=== PATIENT | male | born 1955 | race Caucasian/White ===

== ENCOUNTER 2018-04-11 11:14 | Day surgery (SDC) | payer BC, OTHER ==
[2018-04-11] MEDS ORDERED: PROPOFOL 200 MG/20 ML VIAL As Ordered ×2 (11:31→12:30)
[2018-04-11] MEDS ORDERED: LIDOCAINE 2% INJ 100 MG/5 ML SDV (FOR ANES.) As Ordered (11:31)
[2018-04-11] MEDS: NS 1,000 ML IV (11:42)
[2018-04-11] MEDS ORDERED: METOPROLOL 5 MG/5 ML VIAL As Ordered (12:04)
== END 2018-04-11 13:09 | disposition home or self-care (01) ==
LOC: M OPP 11:14
DX: Z12.11 Encounter for screening for malignant neoplasm of colon (principal); D12.2 Benign neoplasm of ascending colon; D12.3 Benign neoplasm of transverse colon; D12.4 Benign neoplasm of descending colon; D12.7 Benign neoplasm of rectosigmoid junction; K57.30 Diverticulosis of large intestine without perforation or abscess without bleeding; I25.10 Atherosclerotic heart disease of native coronary artery without angina pectoris; I10 Essential (primary) hypertension; E11.9 Type 2 diabetes mellitus without complications; E78.00 Pure hypercholesterolemia, unspecified; I25.2 Old myocardial infarction; E66.9 Obesity, unspecified; F17.290 Nicotine dependence, other tobacco product, uncomplicated; Z79.890 Hormone replacement therapy; Z79.01 Long term (current) use of anticoagulants; Z79.82 Long term (current) use of aspirin; Z79.84 Long term (current) use of oral hypoglycemic drugs; Z95.5 Presence of coronary angioplasty implant and graft
CPT/HCPCS: 45385

== ENCOUNTER 2018-09-25 17:25 | Emergency (ER) | payer BC, OTHER ==
[~2018-09-25] VITALS: Ht 170.2 cm; Wt 99.1 kg
[~2018-09-25 17:25] MED LIST: ASPI-255 PO; ATOR80TA59 PO; CLOP75TA2 PO; FISH7.5C PO; LEVO175T2 PO; METF-839 PO; METO50TA7 PO; MULTCAP PO; NIAC500T64 PO; RAMI1CAP22 PO
[2018-09-25] MEDS ORDERED: NS 1,000 ML IV ONE ×2 (19:45→21:30)
[2018-09-25 19:54] LABS: ALBUMIN 4.3 GM/DL (3.2-5.2); ALT/SGPT 30 U/L (12-78); AMYLASE 39 U/L (25-115); BILIRUBIN,DIRECT < 0.1 MG/DL (0.0-0.2); BILIRUBIN,TOTAL 0.5 MG/DL (0.2-1.0); LIPASE 153 U/L (73-393); TOTAL PROTEIN 7.3 GM/DL (6.4-8.2)
[2018-09-25 19:59] LABS: BASO % 0.1 % (0.0-1.0); EOS % 0.3 % (0.0-3.0); HEMATOCRIT 46.8 % (42.0-52.0); LYMPH # 1.5 10^3/uL (1.5-4.5); LYMPH % 9.6 % (24.0-44.0); MEAN CORPUSCULAR HGB CONC 34.2 g/dl (32.0-36.5); MEAN CORPUSCULAR VOLUME 93.6 fl (80.0-96.0); MONO # 0.7 10^3/uL (0.0-0.8); MONO % 4.2 % (0.0-5.0); NEUTROPHILS # 13.4 10^3/uL (1.8-7.7); NEUTROPHILS % 85.5 % (36.0-66.0); PLATELET COUNT, AUTOMATED 255 10^3/uL (150-450); WHITE BLOOD COUNT 15.6 10^3/uL (4.0-10.0)
[2018-09-25] MEDS ORDERED: KETOROLAC 30 MG/ML VIAL (J1885) IV ONE (20:00)
[2018-09-25 21:48] LABS: CPK CREATINE PHOSPHOKINASE 66 U/L (39-308)
[2018-09-25] MEDS: GASTROGRAFIN SOLUTION 30ML PO SCH ×2 (22:01→22:39)
[2018-09-25] MEDS ORDERED: ISOVUE-370 76% 100ML VIAL (Q9967) As Ordered ONE (23:21)
[2018-09-25] MEDS ORDERED: ACETAMINOPHEN 500 MG TAB PO ONE (23:30)
--- NOTE | 2018-09-26 00:17 | REPVR ---
EXAM: CT Abdomen and Pelvis With Contrast EXAM DATE/TIME: 09/25/2018 9:11 PM CLINICAL HISTORY: 63 years old, male; Right flank pain and hematuria. TECHNIQUE: Imaging protocol: Axial computed tomography images of the abdomen and pelvis with intravenous contrast. Coronal and sagittal reformatted images were created and reviewed. Radiation optimization: All CT scans at this facility use at least one of these dose optimization techniques: automated exposure control; mA and/or kV adjustment per patient size (includes targeted exams where dose is matched to clinical indication); or iterative reconstruction. Contrast material: ISO; Contrast volume: 100 ml; Contrast route: AC; COMPARISON: No relevant prior studies available. FINDINGS: Lungs: The imaged lung bases are clear. Heart: No cardiomegaly or pericardial effusion is noted. ABDOMEN: Liver: The attenuation of the liver is lower compared to the spleen, which can be seen with fatty liver infiltration. No liver lesion is seen. The contour of the liver is smooth. No hepatomegaly is noted. Gallbladder and bile ducts: No calcified gallstones are seen. No gallbladder wall thickening, pericholecystic fluid, or pericholecystic inflammatory changes are identified. No dilation of the intrahepatic or extrahepatic bile ducts is noted. Pancreas: Normal. No dilation of the main pancreatic duct is noted. Spleen: Normal. No splenomegaly is noted. Incidental note is made of a small accessory spleen. Adrenals: There is a 13 mm left adrenal nodule with smooth margins, which measures approximately 40 Hounsfield units. The right adrenal gland is normal. Kidneys and ureters: There is a 5 mm calculus in the right proximal ureter at the L3 level and mild right hydroureteronephrosis. There are calculi in the renal collecting systems bilaterally. No stones are noted in the left. There is bilateral perinephric stranding and right proximal ureteral stranding. There is a 4 mm low-attenuation lesion in the anterior cortex of the midpole of the right kidney, which is too small to accurately characterize. There are several cysts in the left kidney measuring 13 and 15 mm in the midpole, and 22 mm in the inferior pole. There is also a 27 mm low-attenuation lesion measuring 34 Hounsfield units in the lateral cortex of the left kidney, which is not fully characterized in this study. Stomach and bowel: There is no evidence for a bowel obstruction, diverticulosis, diverticulitis, colitis, pneumatosis intestinalis, intussusception, volvulus, or perforated viscus. Appendix: Normal. There is no evidence for appendicitis. PELVIS: Bladder: There is circumferential thickening of the wall of the partially distended urinary bladder. No stones are noted in the urinary bladder. Reproductive: The prostate gland is enlarged. The seminal vesicles are unremarkable. ABDOMEN and PELVIS: Intraperitoneal space: Normal. No free air. No fluid collection. Bones/joints: The imaged bony structures are intact. There is no suspicious osteolytic or osteoblastic lesion. There are degenerative changes in the lumbar spine. Incidental note is made of small bone islands in the T8 and T12 vertebral bodies. There is mild osteoarthritis of both hip joints. Soft tissues: There is a moderate fat containing umbilical hernia. Vasculature: The abdominal aorta is normal in caliber. There are mild to moderate atherosclerotic calcifications. There is an 11 mm oval calcification of the right side of the pelvis, which represents a phlebolith. Lymph nodes: No enlarged lymph nodes. IMPRESSION: 1. 5 mm calculus in the right proximal ureter at the L3 level and mild right hydroureteronephrosis. 2. Bilateral nephrolithiasis. 3. 13 mm left adrenal nodule and a 27 mm lesion arising from the lateral cortex of the midpole of the left kidney. Further evaluation can be performed with an adrenal protocol CT abdomen without and with intravenous contrast using 70-second and 15-minute scan delays after the administration of the intravenous contrast. 4. Thickening of the wall of the urinary bladder, which may be secondary to its partially distended state, bladder wall hypertrophy, or cystitis. Correlation with urinalysis is suggested. 5. Enlarged prostate gland. 6. Moderate fat containing umbilical hernia. COMMENT: Consistent with the [employer] [place] [employer]'s Incidental Findings Committee Report (J Am Shavonne Radiol 2010): Unless the patient's specific circumstances suggest otherwise, any liver lesion 0.5 cm or less, any cystic kidney lesion less than 1.0 cm, and/or any adrenal lesion 1.0 cm or less not otherwise characterized in this report as possessing suspicious or indeterminate imaging features is/are highly likely to be benign and do not require follow-up imaging or biopsy. Electronically signed by: Patrick Long On 09/26/2018 00:16:45 AM
[2018-09-26] MEDS ORDERED: FLOM0.4C39 PO (01:28)
[2018-09-26] MEDS ORDERED: KETO10TAB PO (01:28)
[2018-09-26] MEDS ORDERED: KETOROLAC 30 MG/ML VIAL (J1885) IV ONE (01:30)
[2018-09-26 01:38] VITALS: BP 154/83
== END 2018-09-26 01:55 | disposition home or self-care (01) ==
LOC: M ED 17:25
DX: N21.1 Calculus in urethra (principal); R31.9 Hematuria, unspecified; N40.0 Benign prostatic hyperplasia without lower urinary tract symptoms; K42.9 Umbilical hernia without obstruction or gangrene; E27.9 Disorder of adrenal gland, unspecified; N13.2 Hydronephrosis with renal and ureteral calculous obstruction; N20.0 Calculus of kidney; I25.2 Old myocardial infarction; I25.10 Atherosclerotic heart disease of native coronary artery without angina pectoris; E11.9 Type 2 diabetes mellitus without complications; I10 Essential (primary) hypertension; E78.5 Hyperlipidemia, unspecified; Z95.5 Presence of coronary angioplasty implant and graft; Z72.0 Tobacco use; Z79.82 Long term (current) use of aspirin; Z79.84 Long term (current) use of oral hypoglycemic drugs; Z79.899 Other long term (current) drug therapy
CPT/HCPCS: 74177; 80047; 80076; 81001; 82150; 82550; 83605; 83690; 85025; 96361; 96374; 96376; 99284; J1885; Q9963; Q9967

== ENCOUNTER → 2018-10-16 | Outpatient (CLI) | payer BC, OTHER ==
[~2018-10-16] MED LIST changes: +FLOM0.4C39 PO; +KETO10TAB PO
[2018-10-16 14:03] LABS: APPEARANCE, URINE HAZY (CLEAR); BACTERIA, URINE AUTO NEGATIVE (NEGATIVE); BILIRUBIN, URINE AUTO NEGATIVE (NEGATIVE); BLOOD, URINE BLOOD 3+ (NEGATIVE); CALCIUM OXALATE CRYSTALS SMALL; COLOR, URINE AMBER (YELLOW); GLUCOSE, URINE (UA) AUTO 1+ mg/dL (NEGATIVE); KETONE, URINE AUTO TRACE mg/dL (NEGATIVE); LEUKOCYTE ESTERASE, URINE AUTO NEGATIVE (NEGATIVE); MUCUS, URINE SMALL (NEGATIVE); NITRITE, URINE AUTO NEGATIVE (NEGATIVE); PROTEIN, URINE AUTO 1+ mg/dL (NEGATIVE); RBC, URINE AUTO TNTC /HPF (0-3); SPECIFIC GRAVITY URINE AUTO 1.024 (1.002-1.035); SQUAMOUS EPITHELIAL CELL UR AU 2 /HPF (0-6); WBC, URINE AUTO 9 /HPF (0-3)
--- NOTE | 2018-10-21 07:32 | REP ---
Clinical: Kidney stone. Technique: Single supine view of the abdomen and pelvis. Findings: Few small bilateral nonobstructing intrarenal calculi are identified measuring 2-3 mm. Further evaluation of the urinary tract system is limited due to overlying bowel gas and the previously noted obstructing calculus in the proximal right ureter on recent CT dated 09/25/2018 is not definitively identified. A large ovoid calculus in the right tigist pelvis is consistent with phlebolith. No evidence for bowel obstruction. No obvious organomegaly. Skeletal structures are intact. Impression: 1. Small bilateral intrarenal calculi. 2. Right ureteral stone on prior CT is not visible by current radiographic evaluation. Electronically Signed by Bernardo Waterman MD 10/21/2018 04:13 A
== END ==
LOC: M SMT 11:00
PROVIDERS: ATTEND Nurse Practitioner Family
DX: N20.2 Calculus of kidney with calculus of ureter (principal)

== ENCOUNTER → 2018-10-25 | Outpatient (CLI) | payer BC, OTHER ==
--- NOTE | 2018-10-25 09:46 | REP ---
Urinary tract sonography: History: History of kidney stones. Comparison CT study September 25, 2018. Showed a mid ureteral calculus and hydronephrosis on the right and intrarenal calculi and cysts on the left. Sonographic findings: Scanning at the level urinary bladder confirms the presence of emptying ureteral jets on color Doppler interrogation of the bladder lumen bilaterally. Visualized bladder santana are smooth. Filled bladder volume was 118 ml and postvoid residual 2 ml, 1.7%. No bladder lesion is seen. There is no evidence of hydronephrosis on either side. Renal cortical echogenicity is slightly increased bilaterally. Right renal dimensions are 13.0 x 6.2 x 6.3 cm. Left kidney measures 12.6 x 5.4 x 5.5 cm. A linear echogenic foci are seen centrally in the kidney. No definite calculi could be observed sonographically on either side. There are multiple cysts affecting the left kidney. At the upper to mid pole level there are three cysts close together measuring 1.2, 2.5, and 1.1 cm in greatest diameter respectively. At the lower pole left kidney there is 1.8 cm cyst. Impression: Several left renal cysts noted. No hydronephrosis seen on either side. No definite calculus is observed by ultrasound. Emptying ureteral jets observed bilaterally in the urinary bladder. Electronically Signed by Jimbo Kim MD 10/25/2018 03:04 P
== END ==
LOC: M RAD 07:23
PROVIDERS: ATTEND Nurse Practitioner Family
DX: N28.1 Cyst of kidney, acquired (principal)

== ENCOUNTER → 2018-11-01 | Outpatient (CLI) | payer BC, OTHER ==
[~2018-11-01] MED LIST changes: +ISOVUE-370 76% 100ML VIAL (Q9967) As Ordered ONE
--- NOTE | 2018-11-01 12:07 | REP ---
CT of the abdomen and pelvis without and with IV contrast and without bowel contrast. The for evaluation of the kidneys: Comparisons are the renal ultrasound dated 10/25/[address] of the abdomen and pelvis dated 09/25/2018. On the 09/25/2018 CT there was a 5 mm right ureteral calculus in the mid ureter and right hydronephrosis. On the study today this calculus has migrated to the distal right ureter approximately 10 cm above the UVJ. There is persisting right hydroureter/hydronephrosis. There are multiple nonobstructive right renal calculi as previously. In the left kidney. There are multiple left renal cysts as on the prior studies and there are multiple nonobstructive left renal calculi, as on the prior CT. There is no ureteral calculus and there is no hydronephrosis on the left. There is a Bosniak type 1 simple cyst at the mid pole of the left kidney measuring 2.5 cm. There is a Bosniak type 1 simple cyst at the lower pole of the left kidney measuring 2.2 cm. There is a Bosniak type 1 simple cyst at the mid pole of the left kidney measuring 1.5 cm. There is a Bosniak type 1 simple cyst at the mid pole of the left kidney measuring 1 cm. There are no solid renal masses on the right on the left. There is a 13 mm left adrenal nodule. On the images without IV contrast. The CT density of this nodule is -10 HU. This is compatible with benign adrenal adenoma. The right adrenal is unremarkable. The visualized lung sanchez are unremarkable. The hepatic parenchyma is homogeneous on all phases of the study. The gallbladder, pancreas and spleen are unremarkable. The abdominal aorta is unremarkable. There is no periaortic adenopathy or mass. There is a fat-containing umbilical hernia, unchanged. The peritoneal defect measures 14 mm and the hernia sac measures 34 mm. The bowel and mesentery are otherwise unremarkable. Pelvis: The pelvic bowel loops are unremarkable. The appendix is unremarkable. The bladder is unremarkable. The prostate is moderately enlarged. Impression: Obstructive uropathy of the distal right ureter as described. Multiple simple cysts in the left kidney as described. Multiple bilateral nonobstructive renal calculi. Left adrenal nodule with CT density measurement suggesting it is benign. Moderate prostate enlargement. Fat-containing umbilical hernia. Electronically Signed by Phillip Webb MD 11/01/2018 11:59 A
== END ==
LOC: M RAD 09:32
PROVIDERS: ATTEND Internal Medicine Nephrology
DX: D44.12 Neoplasm of uncertain behavior of left adrenal gland (principal); N28.1 Cyst of kidney, acquired; N20.0 Calculus of kidney; N40.0 Benign prostatic hyperplasia without lower urinary tract symptoms; K42.9 Umbilical hernia without obstruction or gangrene
CPT/HCPCS: 74178; Q9967

== ENCOUNTER → 2018-11-12 | Outpatient (REF) | payer BC, OTHER ==
[~2018-11-12] MED LIST changes: -ISOVUE-370 76% 100ML VIAL (Q9967) As Ordered ONE
[2018-11-12 13:43] LABS: APPEARANCE, URINE CLEAR (CLEAR); BACTERIA, URINE AUTO NEGATIVE (NEGATIVE); BILIRUBIN, URINE AUTO NEGATIVE (NEGATIVE); BLOOD, URINE BLOOD 2+ (NEGATIVE); COLOR, URINE YELLOW (YELLOW); GLUCOSE, URINE (UA) AUTO NEGATIVE (NEGATIVE); KETONE, URINE AUTO NEGATIVE (NEGATIVE); LEUKOCYTE ESTERASE, URINE AUTO NEGATIVE (NEGATIVE); MUCUS, URINE SMALL (NEGATIVE); NITRITE, URINE AUTO NEGATIVE (NEGATIVE); PROTEIN, URINE AUTO NEGATIVE (NEGATIVE); RBC, URINE AUTO 38 /HPF (0-3); SPECIFIC GRAVITY URINE AUTO 1.015 (1.002-1.035); SQUAMOUS EPITHELIAL CELL UR AU 0 /HPF (0-6); WBC, URINE AUTO 2 /HPF (0-3)
== END ==
LOC: M SMT 12:40
PROVIDERS: ATTEND Nurse Practitioner Family
DX: R97.20 Elevated prostate specific antigen [PSA] (principal)

== ENCOUNTER → 2018-11-21 | Outpatient (REF) | payer OTHER ==
[2018-11-29 14:07] LABS: Ca Ox Monohydrate 90 % (.); Size 5x4x3 mm (.)
== END ==
LOC: M SMT 17:04
PROVIDERS: ATTEND Nurse Practitioner Family
DX: N20.0 Calculus of kidney (principal)

== ENCOUNTER → 2018-12-24 | Outpatient (CLI) | payer BC, OTHER ==
--- NOTE | 2018-12-24 15:09 | REP ---
Prostate sonography: History: Elevated PSA. Sonographic findings: Trans rectal prostate sonography demonstrates unremarkable seminal vesicles. Prostate gland is heterogeneously enlarged with calcifications and cystic changes noted. Glandular dimensions are measured at 5.3 x 4.2 x 5.4 cm with a calculated glandular volume of 63.7 ml. There is a 1.1 cm hypoechoic area in the left apex. Transrectal sonographic guidance is provided to Dr. Staley who performed trans rectal ultrasound guided needle biopsy procedure . Electronically Signed by Jimbo Kim MD 12/24/2018 03:00 P
== END | disposition home or self-care (01) ==
LOC: M SMT PRO 09:11
PROVIDERS: ATTEND Urology
DX: C61 Malignant neoplasm of prostate (principal)
CPT/HCPCS: 76872; 76942; G0416

== ENCOUNTER → 2019-02-06 | Outpatient (CLI) | payer BC, OTHER ==
[~2019-02-06] MED LIST changes: +CIPR-249 PO; +DOCU100C16 PO; +PERCOCET PO; +TAMS1CAP17 PO
--- NOTE | 2019-02-11 19:07 | SLEEPHOME ---
DATE OF PROCEDURE: 02/06/2019 ORDERED BY: Dr. Nixon Macario Diagnostic home sleep testing was performed due to concern for the obstructive sleep apnea syndrome. For testing a nocturnal T3 respiratory monitoring device was used. Continuous record was made of pulse, oxygen saturation, airflow, chest, abdominal strain and body position. 11 hours and 59 minutes of data were reviewed. There were 5 hours and 54 minutes marked as time in bed. During the interval marked time in bed, there were 88 respiratory events identified of 10 seconds in duration or greater for a respiratory event index of 14.9. The events were primarily obstructive. Baseline pulse rate 52, pulse rate ranged 45-67. Baseline saturation was 92%, saturations fell as low as 82%. Testing was performed in both the supine and nonsupine positions. IMPRESSION: Abnormal home sleep testing with repetitive respiratory events and oxygen desaturations to 82% with a respiratory event index of 14.9 is consistent with the obstructive sleep apnea syndrome. RECOMMENDATIONS: The patient should be encouraged to undergo a formal sleep evaluation.
== END ==
LOC: M SLEEP HO 10:37
PROVIDERS: ATTEND Internal Medicine Cardiovascular Disease
DX: R06.83 Snoring (principal); G47.9 Sleep disorder, unspecified

== ENCOUNTER → 2019-02-10 | Outpatient (CLI) | payer BC, OTHER ==
[~2019-02-10] MED LIST changes: -CIPR-249 PO; -DOCU100C16 PO; -PERCOCET PO
--- NOTE | 2019-02-10 14:13 | REP ---
PA and lateral chest: There are no comparisons. The lung sanchez are clear. Cardiac size normal. The lisa, mediastinum, skeletal structures are unremarkable. There are no lung masses or nodules. There are no lytic, blastic or destructive skeletal changes. Impression: Negative PA and lateral chest. Electronically Signed by Phillip Webb MD 02/10/2019 02:04 P
== END ==
LOC: M ADAMS 10:39
PROVIDERS: ATTEND Urology
DX: C61 Malignant neoplasm of prostate (principal); Z01.818 Encounter for other preprocedural examination

== ENCOUNTER → 2019-02-10 | Outpatient (REF) | payer OTHER ==
[~2019-02-10] MED LIST changes: +CIPR-249 PO; +DOCU100C16 PO; +PERCOCET PO
[2019-02-10 13:24] LABS: HEMATOCRIT 45.3 % (42.0-52.0); HEMOGLOBIN 14.7 g/dl (13.5-17.5); MEAN CORPUSCULAR HEMOGLOBIN 31.9 pg (27.0-33.0); MEAN CORPUSCULAR HGB CONC 32.5 g/dl (32.0-36.5); MEAN CORPUSCULAR VOLUME 98.3 fl (80.0-96.0); PLATELET COUNT, AUTOMATED 249 10^3/uL (150-450); RED BLOOD COUNT 4.61 10^6/uL (4.30-6.10); WHITE BLOOD COUNT 7.9 10^3/uL (4.0-10.0)
[2019-02-10 13:26] LABS: BLOOD UREA NITROGEN 13 MG/DL (7-18); CALCIUM LEVEL 9.5 MG/DL (8.8-10.2); CARBON DIOXIDE LEVEL 27 MEQ/L (21-32); CHLORIDE LEVEL 107 MEQ/L (98-107); CREATININE FOR GFR 0.98 MG/DL (0.70-1.30); GLOMERULAR FILTRATION RATE > 60.0 (>49); GLUCOSE, FASTING 127 MG/DL (70-100); POTASSIUM SERUM 4.8 MEQ/L (3.5-5.1); SODIUM LEVEL 141 MEQ/L (136-145)
[2019-02-10 13:50] LABS: INR 0.98; PROTHROMBIN TIME 12.7 SECONDS (11.8-14.0)
[2019-02-10 13:51] LABS: PARTIAL THROMBOPLASTIN TIME 28.6 SECONDS (25.0-38.4)
== END ==
LOC: M LABDRWAD 12:59
PROVIDERS: ATTEND Urology
DX: C61 Malignant neoplasm of prostate (principal); Z01.818 Encounter for other preprocedural examination

== ENCOUNTER → 2019-02-24 | Outpatient (REF) | payer OTHER ==
[~2019-02-24] MED LIST changes: -CIPR-249 PO; -DOCU100C16 PO; -PERCOCET PO
== END ==
LOC: M SMT 16:27
PROVIDERS: ATTEND Urology
DX: Z01.818 Encounter for other preprocedural examination (principal); C61 Malignant neoplasm of prostate; N39.0 Urinary tract infection, site not specified

== ENCOUNTER 2019-03-04 06:28 | Inpatient (IN) | payer BC, OTHER ==
[2019-03-04] VITALS (7 sets, daily range): BP systolic 130–139; BP diastolic 70–75
[~2019-03-04] VITALS: Ht 170.2 cm; Wt 97.4 kg
[~2019-03-04 06:28] MED LIST changes: +HEPARIN SOD (PORCINE) 5000 UNITS/ML VIAL SQ ONE; +LIDOCAINE 1% MDV 20ML VIAL SQ PRN; +LR 1,000 ML IV ONE; +ceFAZolin SOD 2 GM in IV 1 EA IV ONE
[2019-03-04] MEDS ORDERED: ASPIRIN 81 MG CHEW TABLET As Ordered ONE (07:04)
[2019-03-04] MEDS ORDERED: BUPIVACAINE HCL 0.25% 30 ML VIAL As Ordered ONE (07:11)
[2019-03-04] MEDS ORDERED: LIDOCAINE 1% SDV INJ 30 ML VIAL As Ordered ONE (07:11)
[2019-03-04] MEDS ORDERED: ASPIRIN 81 MG CHEW TABLET PO ONE (07:15)
[2019-03-04] MEDS ORDERED: MORPHINE 4 MG/ML 1ML VIAL/SYRINGE (J2270) IV PRN (07:45)
[2019-03-04] MEDS ORDERED: ONDANSETRON 4MG/2ML VIAL (J2405) IV PRN ×2 (07:45→12:00)
[2019-03-04] MEDS ORDERED: ACETAMINOPHEN TAB 650MG DOSE (2X325MG) PO PRN (07:45)
[2019-03-04] MEDS ORDERED: DEXTROSE 50% 50 ML SYRINGE IV PRN (07:45)
[2019-03-04] MEDS ORDERED: PERCOCET 5MG/325MG TAB PO PRN (07:45)
[2019-03-04] MEDS ORDERED: ePHEDrine SULFATE 25 MG/5 ML(5MG/ML) SYRINGE As Ordered ONE ×2 (07:53→09:42)
[2019-03-04] MEDS ORDERED: MIDAZOLAM INJ 2 MG/2 ML VIAL (J2250) As Ordered ONE (07:53)
[2019-03-04] MEDS ORDERED: fentaNYL 250 MCG/5 ML INJECTION (J3010) As Ordered ONE (07:53)
[2019-03-04] MEDS ORDERED: ROCURONIUM BROMIDE 50 MG/5 ML VIAL As Ordered ONE ×3 (07:53→08:02)
[2019-03-04] MEDS ORDERED: dexameTHASONE 4 MG/ML 1ML VIAL (J1100) As Ordered ONE (07:53)
[2019-03-04] MEDS ORDERED: SUGAMMADEX SODIUM 500 MG/5 ML VIAL (BRIDION) As Ordered ONE ×2 (07:53→07:56)
[2019-03-04] MEDS ORDERED: METOCLOPRAMIDE INJ 10MG/2ML VIAL (J2765) As Ordered ONE (07:53)
[2019-03-04] MEDS ORDERED: LIDOCAINE 2% INJ 100 MG/5 ML SDV (FOR ANES.) As Ordered ONE (07:53)
[2019-03-04] MEDS ORDERED: PROPOFOL 200 MG/20 ML VIAL As Ordered ONE (07:53)
[2019-03-04] MEDS ORDERED: LACRILUBE (AKWA TEARS) OPHTH OINT 3.5 GM As Ordered ONE (07:54)
[2019-03-04] MEDS ORDERED: HYDROmorphone HCL 2 MG/ML 1ML VIAL (J1170) As Ordered ONE (07:54)
[2019-03-04] MEDS ORDERED: ACETAMINOPHEN 1000MG 100ML IV BTL (OFIRMEV) (J0131 PER 10MG) As Ordered ONE (07:54)
[2019-03-04] MEDS ORDERED: ONDANSETRON 4MG/2ML VIAL (J2405) As Ordered ONE (07:57)
[2019-03-04] MEDS ORDERED: GLUCAGON FOR INJ 1 MG VIAL (J1610) SC PRN (08:00)
[2019-03-04] MEDS ORDERED: GLUCOSE 4 GM CHEW TABLET PO PRN (08:00)
[2019-03-04] MEDS ORDERED: PHENYLephrine HCL 500 MCG/5 ML (100MCG/ML) SYRINGE (J2370) As Ordered ONE (09:21)
[2019-03-04] MEDS ORDERED: DESFLURANE 240 ML INHALANT As Ordered ONE (11:00)
[2019-03-04] MEDS ORDERED: fentaNYL 100 MCG/2 ML INJECTION (J3010) IV PRN (12:00)
[2019-03-04] MEDS ORDERED: LR 1,000 ML IV SCH (12:00)
[2019-03-04] MEDS: HumaLOG INSULIN (NovoLOG) PER UNIT SC SCH ×2 (12:00→17:30)
--- NOTE | 2019-03-04 12:18 | ROOPDOC ---
[facility] Report Of Operation Report of Operation DATE OF PROCEDURE: 03/04/19 PREPROCEDURE DIAGNOSES: Prostate Cancer. POSTPROCEDURE DIAGNOSES: Prostate Cancer. PROCEDURE: Robotic-assisted Laparoscopic Radical Prostatectomy with Bilateral Pelvic Lymph Node Dissection. SURGEON: Anita Lundberg MD [employer] OFFICER: Farnaz Rodriguez NP ANESTHESIA: General. OPERATIVE INDICATIONS: This is a 63 year old male with clinical T1c Keith 4+3 prostate cancer, here today for treatment. DESCRIPTION OF PROCEDURE: The patient was brought to the operating room and general anesthesia was induced. Prophylactic antibiotics were infused. He was then placed in the supine position and prepped and draped in the usual sterile fashion. At this point, a Linares catheter was inserted into the bladder and the balloon was filled with 10 mL of sterile water. We then made a midline incision just above the umbilicus for an 8 mm port. A Veress needle was utilized to achieve pneumoperitoneum. Next, an 8 mm port was inserted into the incision and subsequently a camera was inserted. There were no injuries from the Veress needle or initial trocar placement. Then three robotic ports were placed in the usual configuration in line just below the level of the umbilicus. A 12 mm mental health assistant port was inserted lateral to the camera port. Once all the ports were placed, the robot was docked. Additional lysis of adhesions between the sigmoid colon and abdominal wall was then performed. The bladder was then released from the anterior abdominal wall using electrocautery. Once the bladder was dropped, the fat overlying the prostate was cleared using electrocautery. The superficial dorsal vein was controlled with electrocautery. The endopelvic fascia was opened on both sides and the dorsal venous complex was cleared. Next, a #0 Vicryl [id number] stitch was placed around the dorsal venous complex. Once that was done, the bladder was opened and dissected away from the prostate. At this point, the prostate was lifted up. The vasa deferentia were identified in the midline. They were controlled with electrocautery and then transected. The seminal vesicles were also dissected bilaterally. I then performed a left-sided nerve- sparing procedure. The left side only was done as all of the patient's positive cores were on the right and therefore sparing the left side only was decided on at the patient's preop visit. At this point I ligated and transected bilateral prostatic pedicles using the Harmonic scalpel. The pedicles were carried towards the apex. After taking care of the pedicles the dorsal venous complex was transected with electrocautery. The urethra was transected. The prostate was then mobilized off the rectum using cold scissors. At this point, we checked for hemostasis and it appeared very good. Next, we performed bilateral pelvic lymph node dissection. This was done in a standard fashion. The limits of dissection were the iliac vein proximally, the obturator nerve distally, the pelvic sidewall laterally, and the bladder medially. All lymphatic tissue within these limits was removed. I performed the same procedure on both the right and left sides. Hemostasis was then obtained with a combination of bipolar electrocautery and Weck clips. The lymphatic packe ts were then placed in separate Endo Catch bags for future retrieval. Once hemostasis was confirmed, I then moved on to perform the vesicourethral anastomosis. The vesicourethral anastomosis was performed in running fashion using a Quill stitch. Once this was done, the final #20-Irish Linares catheter was placed. The balloon was filled with 15 mL of sterile water. Upon completion of the vesicourethral anastomosis, it was tested by filling the bladder with sterile water. The anastomosis appeared to be watertight. At this point, the prostate and seminal vesicles were placed in an Endo Catch bag for future retrieval. A Malcolm-Overton drain was brought in through the left robotic port skin site and the drain was positioned anterior to the bladder. The robot was then undocked. A Brian-Ida fascial closure device was utilized to place a #0 Vicryl suture through the fascia of the 12 mm mental health assistant port. The drain was secured to the skin with #2-0 Ethilon suture. The prostate, as well as the lymphatic packets were then extracted from the camera port site after the skin was extended. The fascia in this incision was then closed with a running #0 Vicryl stitch. Next, all the remaining ports were removed and there did not appear to be any bleeding from any of the port sites. The previously placed #0 Vicryl free ties through the mental health assistant port were then tied down and all incisions were ir rigated. Last, all of the incisions were closed with running subcuticular #4-0 Monocryl sutures. Local anesthesia was applied. Dermabond was then applied to the incisions. This marked the conclusion of the procedure. The patient was then awakened from anesthesia and transported to the recovery room in stable condition. ESTIMATED BLOOD LOSS: 75 mL. COMPLICATIONS: None. SPECIMENS: Prostate and seminal vesicles, right pelvic lymph nodes, left pelvic lymph nodes. PLAN: The patient will be admitted to the hospital postoperatively, and he will likely be discharged home within the next 1-2 days. ANITA LUNDBERG MD Mar 04, 2019 12:19
[2019-03-04 12:23] LABS: HEMATOCRIT 44.8 % (42.0-52.0); HEMOGLOBIN 14.7 g/dl (13.5-17.5); MEAN CORPUSCULAR HEMOGLOBIN 31.9 pg (27.0-33.0); MEAN CORPUSCULAR HGB CONC 32.8 g/dl (32.0-36.5); MEAN CORPUSCULAR VOLUME 97.2 fl (80.0-96.0); PLATELET COUNT, AUTOMATED 231 10^3/uL (150-450); RED BLOOD COUNT 4.61 10^6/uL (4.30-6.10); WHITE BLOOD COUNT 10.7 10^3/uL (4.0-10.0)
[2019-03-04 12:41] LABS: BLOOD UREA NITROGEN 16 MG/DL (7-18); CALCIUM LEVEL 8.9 MG/DL (8.8-10.2); CARBON DIOXIDE LEVEL 26 MEQ/L (21-32); CHLORIDE LEVEL 109 MEQ/L (98-107); CREATININE FOR GFR 1.14 MG/DL (0.70-1.30); GLOMERULAR FILTRATION RATE > 60.0 (>49); GLUCOSE, FASTING 215 MG/DL (70-100); POTASSIUM SERUM 4.1 MEQ/L (3.5-5.1); SODIUM LEVEL 141 MEQ/L (136-145)
[2019-03-04] MEDS: HEPARIN SOD (PORCINE) 5000 UNITS/ML VIAL SC SCH ×2 (13:54→21:01)
[2019-03-04] MEDS: NS 1,000 ML IV SCH ×3 (13:54→23:18)
[2019-03-04] MEDS: ceFAZolin SOD 1 GM in D5W MINI-BAG PLUS 50 ML IV SCH ×2 (15:43→23:18)
[2019-03-04] MEDS: METOPROLOL TART 25 MG TABLET PO SCH (20:47)
[2019-03-04] MEDS: DOCUSATE SODIUM 100 MG CAP PO SCH (20:47)
[2019-03-04] MEDS ORDERED: ATORVASTATIN 20 MG TAB PO SCH (21:00)
[2019-03-04] MEDS ORDERED: HumaLOG INSULIN (NovoLOG) PER UNIT SC SCH (21:00)
[2019-03-04] MEDS: PERCOCET 5MG/325MG TAB PO PRN (21:06)
[2019-03-05 02:00] VITALS: BP 132/71
[2019-03-05] MEDS: PERCOCET 5MG/325MG TAB PO PRN ×2 (05:38→12:52)
[2019-03-05] MEDS: HEPARIN SOD (PORCINE) 5000 UNITS/ML VIAL SC SCH ×2 (05:38→14:17)
[2019-03-05 06:00] VITALS: BP 133/70
[2019-03-05] MEDS ORDERED: LEVOTHYROXINE 100MCG TABLET (0.1MG) PO SCH (06:00)
[2019-03-05] MEDS ORDERED: LEVOTHYROXINE 150MCG TABLET (0.15MG) PO SCH (06:00)
[2019-03-05] MEDS ORDERED: LEVOTHYROXINE 75MCG TABLET (0.075MG) PO SCH (06:00)
[2019-03-05 06:17] LABS: HEMATOCRIT 39.3 % (42.0-52.0); HEMOGLOBIN 12.9 g/dl (13.5-17.5); MEAN CORPUSCULAR HGB CONC 32.8 g/dl (32.0-36.5); MEAN CORPUSCULAR VOLUME 94.5 fl (80.0-96.0); PLATELET COUNT, AUTOMATED 224 10^3/uL (150-450); RED BLOOD COUNT 4.16 10^6/uL (4.30-6.10); WHITE BLOOD COUNT 11.1 10^3/uL (4.0-10.0)
[2019-03-05 06:39] LABS: BLOOD UREA NITROGEN 12 MG/DL (7-18); CALCIUM LEVEL 8.3 MG/DL (8.8-10.2); CARBON DIOXIDE LEVEL 25 MEQ/L (21-32); CHLORIDE LEVEL 109 MEQ/L (98-107); GLOMERULAR FILTRATION RATE > 60.0 (>49); GLUCOSE, FASTING 140 MG/DL (70-100); POTASSIUM SERUM 3.9 MEQ/L (3.5-5.1); SODIUM LEVEL 141 MEQ/L (136-145)
[2019-03-05] MEDS: NS 1,000 ML IV SCH (06:44)
[2019-03-05] MEDS: HumaLOG INSULIN (NovoLOG) PER UNIT SC SCH ×2 (07:30→12:00)
--- NOTE | 2019-03-05 08:57 | IPNPDOC ---
Subjective Review oF Systems Chief Complaint The patient is a 63-year-old male admitted with a reason for visit of Prostate Cancer. Events since Last Encounter No acute events o/n. Good pain control. No n/v. Ambulating ok. No f/c/ns. Objective Physical Examination General Exam: Alert, Cooperative, No Acute Distress ABDOMEN EXAM: Soft, Tenderness (mild), Other (incisions clean/dry/intact; PETERSON w/ serosang output) Skin Exam: Nl turgor and temperature Neuro Exam: Normal Speech Psych Exam: Mental status NL, Mood NL Other physical findings catheter draining clear urine Vital Signs/I&O Vital Signs Date Time Temp Pulse Resp B/P (MAP) Pulse Ox O2 Delivery O2 Flow Rate FiO2 03/05/19 06:10 18 03/05/19 06:00 98.6 65 133/70 (91) 96 Room Air 03/04/19 18:40 2.0 I&O- Last 24 Hours up to 6 AM 03/05/19 06:00 Intake Total 5940 ml Output Total 2740 ml Balance 3200 ml Laboratory Data Labs 24H Laboratory Tests 2 03/04/19 11:57: Nucleated Red Blood Cells % (auto) 0.0, Anion Gap 6L, Glomerular Filtration Rate > 60.0, Calcium Level 8.9 03/04/19 16:52: Bedside Glucose (Misc Panel) 183H 03/04/19 20:15: Bedside Glucose (Misc Panel) 174H 03/05/19 05:57: Nucleated Red Blood Cells % (auto) 0.0, Anion Gap 7L, Glomerular Filtration Rate > 60.0, Calcium Level 8.3L CBC/BMP Laboratory Tests 03/04/19 11:57 03/05/19 05:57 FSBS Laboratory Tests Test 03/04/19 16:52 03/04/19 20:15 Range/Units Bedside Glucose (Misc Panel) 183 174 80-115 MG/DL Assessment/Plan Date Seen The patient was seen on 03/05/19. Patient Summary This is a 63 y/o M POD1 s/p RALP w/ BPLND. He is doing well. Hb stable. Cr normal. Good UOP. Normal PETERSON output. Plan/VTE VTE Prophylaxis Ordered?: Yes VTE Exclusion Mechanical Proph: N/A:VTE Prophy Ordered VTE Exclusion Pharmacological: N/A:VTE Prophy Ordered Plan/Urinary Catheter Urinary Catheter: Other Catheter: (catheter will need to stay in for at least 7 days for healing of vesicourethral anastomosis) Plan - d/c IVF - keep catheter to gravity drainage - strict I/Os - percocet prn pain - SCDs when in bed - SQH - incentive spirometry - ambulate - CLD -> advance diet as tolerated - likely discharge home later today w/ catheter (will remove PETERSON drain prior to discharge) ANITA LUNDBERG MD Mar 05, 2019 08:57
[2019-03-05] MEDS ORDERED: RAMIPRIL 1.25 MG CAP PO SCH (09:00)
[2019-03-05] MEDS ORDERED: FUROSEMIDE 20 MG/2 ML VIAL (J1940) IV ONE (09:00)
[2019-03-05] MEDS: DOCUSATE SODIUM 100 MG CAP PO SCH (09:46)
[2019-03-05 10:00] VITALS: BP 150/76
[2019-03-05 12:50] VITALS: BP 148/74
[2019-03-05] MEDS: METOPROLOL TART 25 MG TABLET PO SCH (12:50)
[2019-03-05] MEDS ORDERED: CIPR-249 PO (14:21)
[2019-03-05] MEDS ORDERED: PERCOCET PO (14:21)
[2019-03-05] MEDS ORDERED: DOCU100C16 PO (14:21)
--- NOTE | 2019-03-06 11:21 | DSES ---
DATE OF ADMISSION: 03/04/2019 DATE OF DISCHARGE: 03/05/2019 ADMISSION DIAGNOSIS: Prostate cancer. DISCHARGE DIAGNOSIS: Prostate cancer. ADMITTING PHYSICIAN: Librado Staley MD DISCHARGING PHYSICIAN: Librado Staley MD PROCEDURES PERFORMED: Robotic-assisted laparoscopic radical prostatectomy with bilateral pelvic lymph node dissection on 03/04/2019. HISTORY OF PRESENT ILLNESS: This is a 63-year-old male who underwent the above procedure for treatment of prostate cancer. He was admitted to the hospital postoperatively. HOSPITALIZATION COURSE: The patient admitted to the hospital after undergoing a robotic radical prostatectomy with bilateral pelvic lymph node dissection on 03/04/2019. His postoperative course was unremarkable. On postoperative day #1, all his laboratory work was within normal limits. He had excellent urine output from his catheter. He had minimal output from his Malcolm-Overton drain. His pain was well controlled with oral pain medication. He was ambulating well. He was tolerating a regular diet. Since he was doing well, he was deemed ready for discharge home on postoperative day #1. His Malcolm-Overton drain was removed prior to discharge. He was discharged home with his catheter in place with the plan for him to followup in the clinic in approximately 1 week for catheter removal and to discuss his pathology results.
== END 2019-03-05 16:33 | disposition home or self-care (01) | DRG 484 ==
LOC: M OR 06:28 → M MSPAV 13:31
PROVIDERS: ADMIT Urology; ATTEND Urology
PROC: 07BC4ZX Excision of Pelvis Lymphatic, Percutaneous Endoscopic Approach, Diagnostic (ICD-10-PCS; 2019-03-04)
PROC: 8E0W4CZ Robotic Assisted Procedure of Trunk Region, Percutaneous Endoscopic Approach (ICD-10-PCS; 2019-03-04)
PROC: 0VT04ZZ Resection of Prostate, Percutaneous Endoscopic Approach (ICD-10-PCS; principal; 2019-03-04 07:30)
DX: C61 Malignant neoplasm of prostate (principal); I10 Essential (primary) hypertension; Z87.891 Personal history of nicotine dependence; G47.33 Obstructive sleep apnea (adult) (pediatric); I25.10 Atherosclerotic heart disease of native coronary artery without angina pectoris; E11.9 Type 2 diabetes mellitus without complications; E78.5 Hyperlipidemia, unspecified; R73.01 Impaired fasting glucose; Z79.84 Long term (current) use of oral hypoglycemic drugs; Z79.02 Long term (current) use of antithrombotics/antiplatelets; Z79.82 Long term (current) use of aspirin; Z79.899 Other long term (current) drug therapy

== ENCOUNTER → 2019-04-11 | Outpatient (CLI) | payer BC, OTHER ==
[~2019-04-11] MED LIST changes: +CIPR-249 PO; +DOCU100C16 PO; -HEPARIN SOD (PORCINE) 5000 UNITS/ML VIAL SQ ONE; -LIDOCAINE 1% MDV 20ML VIAL SQ PRN; -LR 1,000 ML IV ONE; +PERCOCET PO; -ceFAZolin SOD 2 GM in IV 1 EA IV ONE
== END ==
LOC: M LABDRWAD 11:01
PROVIDERS: ATTEND Urology
DX: C61 Malignant neoplasm of prostate (principal)

== ENCOUNTER → 2019-07-14 | Outpatient (REF) | payer OTHER | LOC: M LABDRWAD 12:57 | PROVIDERS: ATTEND Urology | DX: C61 Malignant neoplasm of prostate (principal) ==

== ENCOUNTER → 2019-07-14 | Outpatient (CLI) | payer BC, OTHER ==
--- NOTE | 2019-07-14 11:09 | REP ---
KUB ABDOMEN AND PELVIS: Two KUB films of the abdomen and pelvis performed and compared to a prior study of 10/16/2018. Evaluation for intrarenal calculi is limited due to overlying bowel gas. There may be a tiny intrarenal calculus of the upper pole of the left kidney as well as the lower pole of the left kidney, also in the lower pole of the right kidney. There may also be a tiny calculus in the upper pole of the right kidney. Large right pelvic calcification is unchanged. This is not located in the ureter. Bowel gas pattern is normal. There are mild degenerative changes in the spine, sacroiliac joints and hips. IMPRESSION: Bowel gas limits evaluation for intrarenal calculi. There are possibly two intrarenal calculi in each kidney as discussed above. Electronically Signed by Phillip Alvarez MD 07/14/2019 01:26 P
== END ==
LOC: M ADAMS 09:57
PROVIDERS: ATTEND Nurse Practitioner Family
DX: N20.0 Calculus of kidney (principal)

== ENCOUNTER → 2019-10-14 | Outpatient (REF) | payer MEDICARE, OTHER | LOC: M SFHCADAM 14:11 | PROVIDERS: ATTEND Urology | DX: C61 Malignant neoplasm of prostate (principal) ==

== ENCOUNTER → 2019-11-06 | Outpatient (REF) | payer MEDICARE, BC, OTHER | LOC: M LABDRWAD 17:06 | PROVIDERS: ATTEND Nurse Practitioner Family | DX: N20.0 Calculus of kidney (principal); Z79.899 Other long term (current) drug therapy ==

== ENCOUNTER → 2019-11-18 | Outpatient (REF) | payer MEDICARE, OTHER ==
[2019-11-18 18:02] LABS: BLOOD UREA NITROGEN 20 MG/DL (7-18); CALCIUM LEVEL 9.7 MG/DL (8.8-10.2); CARBON DIOXIDE LEVEL 27 MEQ/L (21-32); CHLORIDE LEVEL 109 MEQ/L (98-107); CREATININE FOR GFR 1.13 MG/DL (0.70-1.30); GLOMERULAR FILTRATION RATE > 60.0 (>49); GLUCOSE, FASTING 116 MG/DL (70-100); POTASSIUM SERUM 4.6 MEQ/L (3.5-5.1); SODIUM LEVEL 139 MEQ/L (136-145)
== END ==
LOC: M SFHCADAM 14:28 → M LABSMT 14:28
PROVIDERS: ATTEND Urology
DX: R31.0 Gross hematuria (principal)

== ENCOUNTER → 2019-11-25 | Outpatient (CLI) | payer MEDICARE, BC, OTHER ==
[~2019-11-25] MED LIST changes: +ISOVUE-370 76% 100ML VIAL As Ordered ONE
--- NOTE | 2019-11-26 02:53 | REP ---
REASON: Hematuria. COMPARISON: 11/01/2018 CONTRAST: 100 mL [id number]. The lung bases are clear and unchanged. The precontrast-enhanced portion of the examination shows hepatic and splenic densities to be within normal limits and unchanged. There are no choleliths. There are multiple bilateral nonobstructing nephroliths. These are essentially unchanged. There are no urinary bladder calcifications. The contrast-enhanced portion of examination shows the liver, gallbladder, spleen, pancreas, adrenal glands, and kidneys to be essentially unchanged. There are bilateral renal cysts, status quo. There is perinephric stranding, status quo. The abdominal aorta and para-aortic regions are again seen to be within normal limits. The bowel loops and their mesenteries within the abdomen and pelvis are unchanged and again seen to be within normal limits. No free fluid or free air is seen in the abdomen or pelvis. No intra-abdominal or intrapelvic mass or adenopathy has developed. There is a fat-containing umbilical hernia, status quo. The osseous structures are unchanged. Delayed imaging through the pelvis with opacification of the urinary bladder shows no abnormal filling defect in the opacified portion of the urinary bladder. MIP reformatted 3D images of the abdomen and pelvis show no hydronephrosis. The ureters were incompletely opacified, most likely due to normal peristaltic activity. IMPRESSION: No significant change compared to 11/01/2018. Bilateral renal cysts, status quo. Other findings as described above. There are bilateral nonobstructing nephroliths, and there is perinephric stranding, which also appears stable. Electronically Signed by Efra Owusu DO 11/26/2019 12:39 P
== END ==
LOC: M RAD 15:13
PROVIDERS: ATTEND Urology
DX: R31.0 Gross hematuria (principal); N20.0 Calculus of kidney
CPT/HCPCS: 74178; Q9967

== ENCOUNTER → 2020-02-05 | Outpatient (REF) | payer MEDICARE, OTHER ==
[~2020-02-05] MED LIST changes: -ISOVUE-370 76% 100ML VIAL As Ordered ONE
== END ==
LOC: M LABDRWAD 17:16
PROVIDERS: ATTEND Urology
DX: C61 Malignant neoplasm of prostate (principal)

== ENCOUNTER → 2020-04-01 | Outpatient (CLI) | payer MEDICARE, BC, OTHER ==
--- NOTE | 2020-04-01 11:02 | REP ---
INDICATION: CYST OF KIDNEY, HX OF CALCULI. COMPARISON: 10/25/2018. TECHNIQUE: Real-time sonographic evaluation of the kidneys is performed. FINDINGS: Renal cortical echogenicity pattern is normal bilaterally and contours are smooth. There is no evidence of hydronephrosis or calculus in either kidney. There are 2 cysts in the upper right kidney with maximum diameter 1.3 cm. There is a 4 mm cyst in the lower right kidney. There are 4 cysts in the left kidney both superiorly and inferiorly, the largest is in the upper pole 2.6 cm in diameter. The right kidney measures 12.6 x 6.0 x 5.3 cm. Left renal dimensions are 11.6 x 5.4 x 6.2 cm. The urinary bladder is unremarkable. Ureteral jets could not be seen in the urinary bladder with Doppler color evaluation. IMPRESSION: Bilateral renal cysts. No hydronephrosis. <Electronically signed by Phillip Alvarez > 04/01/20 [id number]
== END ==
LOC: M RAD 08:00
PROVIDERS: ATTEND Internal Medicine Nephrology
DX: N28.1 Cyst of kidney, acquired (principal); Z87.442 Personal history of urinary calculi

== ENCOUNTER → 2020-05-12 | Outpatient (REF) | payer MEDICARE, OTHER | LOC: M SFHCADAM 10:01 | PROVIDERS: ATTEND Urology | DX: C61 Malignant neoplasm of prostate (principal) ==

== ENCOUNTER → 2020-06-29 | Outpatient (REF) | payer MEDICARE, OTHER ==
[2020-06-29 18:30] LABS: TOTAL PROTEIN 6.9 GM/DL (6.4-8.2)
[2020-07-01 18:06] LABS: FREE KAPPA LIGHT CHAINS SERUM 23.2 mg/L (3.3-19.4); FREE LAMBDA LIGHT CHAINS SERUM 17.4 mg/L (5.7-26.3); KAPPA/LAMBDA RATIO SERUM 1.33 (0.26-1.65)
== END ==
LOC: M LAB REF 16:59
PROVIDERS: ATTEND Internal Medicine Nephrology
DX: R80.9 Proteinuria, unspecified (principal)

== ENCOUNTER → 2020-08-09 | Outpatient (REF) | payer MEDICARE, OTHER | LOC: M SFHCADAM 15:24 | PROVIDERS: ATTEND Urology | DX: C61 Malignant neoplasm of prostate (principal) ==

== ENCOUNTER → 2020-11-16 | Outpatient (REF) | payer MEDICARE, OTHER | LOC: M SFHCADAM 15:13 | PROVIDERS: ATTEND Urology | DX: C61 Malignant neoplasm of prostate (principal) ==

== ENCOUNTER → 2021-01-01 | Outpatient (REF) | payer MEDICARE, OTHER | LOC: M WUC 19:54 | PROVIDERS: ATTEND Physician Assistant | DX: L02.216 Cutaneous abscess of umbilicus (principal) ==

== ENCOUNTER → 2021-02-16 | Outpatient (REF) | payer MEDICARE, OTHER | LOC: M SFHCADAM 13:13 | PROVIDERS: ATTEND Urology | DX: C61 Malignant neoplasm of prostate (principal) ==

== ENCOUNTER → 2021-03-15 | Outpatient (CLI) | payer MEDICARE, BC, OTHER ==
[~2021-03-15] MED LIST changes: +GASTROGRAFIN SOLUTION 30ML (Q9963) As Ordered ONE; +ISOVUE-370 76% 100ML VIAL As Ordered ONE
--- NOTE | 2021-03-15 19:15 | REP ---
INDICATION: UMBILICAL HERNIA. COMPARISON: 11/25/2019 TECHNIQUE: Oral Gastrografin mixture 10 mL in 290 mL flavored water for 2 doses per our bowel contrast protocol. There after 100 mL of Isovue 370 given scanning through the abdomen and pelvis with coronal and sagittal reconstructions. FINDINGS: CT abdomen: Lung bases remain clear. The heart is not enlarged there is no pericardial thickening or effusion. No hiatal hernia. There is no hepatosplenomegaly, focal hepatic or splenic mass nor intrahepatic biliary dilatation. Gallbladder without calcified stone or mass. Adjacent pancreas is unremarkable. Adrenal glands are normal. There are multiple kidney cysts on the left and 1 on the right, unchanged. Pattern of perinephric stranding is noted and unchanged. The aorta is calcifications but no aneurysm or dissection. No periaortic, other retroperitoneal or mesenteric pathologic sized lymphadenopathy. Oral contrast reaches the distal sigmoid and rectum. Stool and gas are seen throughout the colon without colitis or diverticulitis. Appendix is seen and normal. Small bowel loops without dilatation or adjacent inflammatory change. There is no ascites, perforation or free air in the abdomen or pelvis on lung window review of all CT slices. Anterior abdominal wall shows umbilical hernia a 14 by 13 mm gap. Only omental fat is seen within it and it measures 4.8 cm vertically by 4.1 cm transverse with AP diameter of 3.8 cm. No bowel herniation into this site. Bone windows show degenerative changes thoracic and lumbar spine with sclerotic bone islands in a few of the thoracic levels. These are unchanged for urine half. Visualized ribs were also intact. CT pelvis: Sacrum, SI joints, pelvis and hips show minor degenerative change without destructive lesion or fracture. 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 No stone, mass, dilated distal ureter or ureteral calcifications seen. Calcifications of iliac vessels noted without aneurysm. No pelvic ventral or inguinal hernia. No pathologic inguinal or pelvic adenopathy by CT size criteria. Calcified density in the right true pelvis suggesting calcified lymph node or venous calcification, (phlebolith) stable. Distal left colon, sigmoid and rectum without inflammatory change. Small bowel loops in the pelvis were unremarkable. IMPRESSION: 1. Midline the umbilical hernia with a gap of 14 x 13 mm and with the omental fat herniating into it measuring 4.8 x 4.1 x 3.8 cm. No bowel herniation. The small bowel loops and colon were unremarkable. I see no tethering or dilatation of loops. 2. Some degenerative changes of spine and pelvis. No acute bony finding. 3. Renal cysts and some chronic perinephric stranding, stable. 4. No other acute or new finding. <Electronically signed by Fran Murphy > 03/15/211911
== END ==
LOC: M RAD 15:22
PROVIDERS: ATTEND Internal Medicine
DX: K42.9 Umbilical hernia without obstruction or gangrene (principal)
CPT/HCPCS: 74177; Q9963; Q9967

== ENCOUNTER → 2021-04-21 | Outpatient (REF) | payer MEDICARE, BC, OTHER ==
[~2021-04-21] MED LIST changes: -GASTROGRAFIN SOLUTION 30ML (Q9963) As Ordered ONE; -ISOVUE-370 76% 100ML VIAL As Ordered ONE
== END ==
LOC: M LAB REF 13:12
PROVIDERS: ATTEND Internal Medicine Nephrology
DX: E11.22 Type 2 diabetes mellitus with diabetic chronic kidney disease (principal); E83.42 Hypomagnesemia; N18.2 Chronic kidney disease, stage 2 (mild)

== ENCOUNTER → 2021-05-19 | Outpatient (CLI) | payer MEDICARE, BC, OTHER ==
[~2021-05-19] MED LIST changes: +CALC600T60 PO; +ECOT81TA5 PO; +METF850T4 PO; +MULT-40 PO
== END ==
LOC: M LABSMTC 10:13
PROVIDERS: ATTEND Anesthesiology
DX: Z01.818 Encounter for other preprocedural examination (principal); Z11.52 Encounter for screening for COVID-19

== ENCOUNTER 2021-05-24 08:15 | Day surgery (SDC) | payer MEDICARE, BC, OTHER ==
[~2021-05-24] VITALS: Ht 170.2 cm; Wt 100.0 kg
[~2021-05-24 08:15] MED LIST changes: +LR 1,000 ML IV ONE; +ceFAZolin SOD 2 GM in IV 1 EA IV ONE
[2021-05-24] MEDS ORDERED: ROCURONIUM BROMIDE 50 MG/5 ML VIAL As Ordered ONE (08:19)
[2021-05-24] MEDS ORDERED: fentaNYL 250 MCG/5 ML INJECTION (J3010) As Ordered ONE (08:19)
[2021-05-24] MEDS ORDERED: LIDOCAINE 2% 100MG/5ML SDV (FOR ANES.) As Ordered ONE (08:19)
[2021-05-24] MEDS ORDERED: propofoL 200 MG/20 ML VIAL As Ordered ONE (08:19)
[2021-05-24] MEDS ORDERED: MIDAZOLAM INJ 2MG/2ML VIAL (J2250 PER 1MG) As Ordered ONE (08:20)
[2021-05-24] MEDS ORDERED: ACET-897 PO (08:27)
[2021-05-24] MEDS ORDERED: SUGAMMADEX SODIUM 500 MG/5 ML VIAL (BRIDION) As Ordered ONE (08:52)
[2021-05-24] MEDS ORDERED: BUPIVACAINE HCL 0.25% 10ML VIAL As Ordered ONE (09:28)
[2021-05-24] MEDS ORDERED: BUPIVACAINE/EPIN 0.25% 30 ML VIAL As Ordered ONE (09:28)
[2021-05-24] MEDS ORDERED: BUPIVACAINE LIPOSOME/PF 1.3% 20ML VIAL (13.3MG/ML)(EXPAREL)(C9290 PER1MG) As Ordered ONE (09:28)
[2021-05-24] MEDS ORDERED: ACETAMINOPHEN 1000MG 100ML IV BTL (OFIRMEV) (J0131 PER 10MG) As Ordered ONE (10:08)
[2021-05-24] MEDS ORDERED: METOCLOPRAMIDE INJ 10MG/2ML VIAL (J2765 PER 1) As Ordered ONE (10:08)
[2021-05-24] MEDS ORDERED: ONDANSETRON 4MG/2ML VIAL As Ordered ONE (10:08)
[2021-05-24] MEDS ORDERED: ePHEDrine SULFATE 25 MG/5 ML(5MG/ML) SYRINGE As Ordered ONE (10:19)
[2021-05-24] MEDS ORDERED: fentaNYL 100 MCG/2 ML INJECTION (J3010) IV PRN (11:15)
[2021-05-24] MEDS ORDERED: NS 1,000 ML IV SCH (11:15)
[2021-05-24] MEDS ORDERED: LR 1,000 ML IV SCH (11:15)
[2021-05-24] MEDS ORDERED: ONDANSETRON 4MG/2ML VIAL IV PRN (11:15)
[2021-05-24] MEDS ORDERED: oxyCODONE 5MG TAB PO PRN (11:15)
[2021-05-24] MEDS ORDERED: NORCO, ANEXSIA 5/325MG TABLET (HYDROcodone/ACETAMINOPHEN) PO PRN ×2 (11:20)
[2021-05-24 11:50] VITALS: BP 145/82
== END 2021-05-24 12:50 | disposition home or self-care (01) ==
LOC: M SDC 08:15
PROVIDERS: ATTEND Surgery
DX: K42.9 Umbilical hernia without obstruction or gangrene (principal); I11.9 Hypertensive heart disease without heart failure; Z95.5 Presence of coronary angioplasty implant and graft; I25.2 Old myocardial infarction; E78.00 Pure hypercholesterolemia, unspecified; E11.9 Type 2 diabetes mellitus without complications; E03.9 Hypothyroidism, unspecified; R06.83 Snoring; Z85.46 Personal history of malignant neoplasm of prostate; Z90.79 Acquired absence of other genital organ(s); F17.290 Nicotine dependence, other tobacco product, uncomplicated; Z79.899 Other long term (current) drug therapy; Z79.82 Long term (current) use of aspirin; Z79.84 Long term (current) use of oral hypoglycemic drugs
CPT/HCPCS: 49585; 87426; 88302; C1781; C9290; J0131; J0690; J2250; J2405; J2765; J3010

== ENCOUNTER → 2021-07-30 | Outpatient (CLI) | payer MEDICARE, BC, OTHER ==
[~2021-07-30] MED LIST changes: +ACET-897 PO; +CALCTAB89 PO; -LR 1,000 ML IV ONE; -ceFAZolin SOD 2 GM in IV 1 EA IV ONE
== END ==
LOC: M LABSMTC 09:57
PROVIDERS: ATTEND Anesthesiology
DX: Z01.818 Encounter for other preprocedural examination (principal); Z11.52 Encounter for screening for COVID-19

== ENCOUNTER 2021-08-04 07:11 | Day surgery (SDC) | payer MEDICARE, BC, OTHER ==
[~2021-08-04] VITALS: Ht 170.2 cm; Wt 98.4 kg
[~2021-08-04 07:11] MED LIST changes: +NS 1,000 ML IV ONE
[2021-08-04] MEDS ORDERED: LIDOCAINE 2% 100MG/5ML SDV (FOR ANES.) As Ordered ONE (08:44)
[2021-08-04] MEDS ORDERED: propofoL 200 MG/20 ML VIAL As Ordered ONE (08:44)
[2021-08-04 09:00] VITALS: BP 162/76
== END 2021-08-04 09:02 | disposition home or self-care (01) ==
LOC: M OPP 07:11
PROVIDERS: ATTEND Surgery
DX: Z86.010 Personal history of colon polyps (principal); D12.5 Benign neoplasm of sigmoid colon

== ENCOUNTER → 2021-08-23 | Outpatient (REF) | payer MEDICARE, BC, OTHER ==
[~2021-08-23] MED LIST changes: -NS 1,000 ML IV ONE
== END ==
LOC: M LABDRWAD 16:09
PROVIDERS: ATTEND Urology
DX: C61 Malignant neoplasm of prostate (principal)

== ENCOUNTER → 2022-02-20 | Outpatient (REF) | payer MEDICARE, OTHER ==
[~2022-02-20] MED LIST changes: +FISH10005 PO; -FISH7.5C PO
== END ==
LOC: M SFHCADAM 11:19
PROVIDERS: ATTEND Urology
DX: C61 Malignant neoplasm of prostate (principal)

== ENCOUNTER → 2022-05-29 | Outpatient (REF) | payer MEDICARE, OTHER ==
[2022-05-29 16:37] LABS: ALBUMIN 3.8 G/DL (3.2-5.2); ALKALINE PHOSPHATASE 73 U/L (46-116); ALT/SGPT 20 U/L (7.0-40); AST/SGOT 14 U/L (<34); BILIRUBIN,TOTAL 0.5 MG/DL (0.3-1.2); BLOOD UREA NITROGEN 15 MG/DL (9-23); CALCIUM LEVEL 9.5 MG/DL (8.3-10.6); CARBON DIOXIDE LEVEL 28 MMOL/L (20-31); CHLORIDE LEVEL 107 MMOL/L (98-107); CHOLESTEROL LEVEL 147 MG/DL (<200); CHOLESTEROL RISK RATIO 3.42 (<5); CREATININE FOR GFR 0.84 MG/DL (0.70-1.30); GLOMERULAR FILTRATION RATE > 60.0 (>49); GLUCOSE, FASTING 108 MG/DL (74-106); HDL CHOLESTEROL 42.9 MG/DL (>40); LDL CHOLESTEROL 67.7 MG/DL (<100); NON-HDL-C 104 MG/DL; POTASSIUM SERUM 5.1 MMOL/L (3.5-5.1); SODIUM LEVEL 141 MMOL/L (136-145); TOTAL PROTEIN 6.7 G/DL (5.7-8.2); TRIGLYCERIDES LEVEL 182 MG/DL (<150)
[2022-05-29 16:41] LABS: THYROID STIMULATING HORMONE 2.279 uIU/ML (0.55-4.78)
[2022-05-29 17:11] LABS: HEMOGLOBIN A1c 6.1 % (4.0-6.0)
== END ==
LOC: M LABDRWAD 15:56
PROVIDERS: ATTEND Internal Medicine
DX: E11.9 Type 2 diabetes mellitus without complications (principal); E78.5 Hyperlipidemia, unspecified; E03.9 Hypothyroidism, unspecified

== ENCOUNTER → 2022-08-25 | Outpatient (REF) | payer MEDICARE, OTHER | LOC: M SFHCADAM 09:27 | PROVIDERS: ATTEND Urology | DX: C61 Malignant neoplasm of prostate (principal) ==

== ENCOUNTER → 2022-08-29 | Outpatient (CLI) | payer MEDICARE, OTHER ==
[2022-08-29 13:20] LABS: BASO % 0.4 % (0.0-1.0); EOS # 0.3 10^3/uL (0.0-0.5); HEMATOCRIT 46.8 % (42.0-52.0); HEMOGLOBIN 15.1 g/dl (13.5-17.5); LYMPH # 2.5 10^3/uL (1.5-5.0); LYMPH % 29.9 % (24.0-44.0); MEAN CORPUSCULAR HEMOGLOBIN 30.8 pg (27.0-33.0); MEAN CORPUSCULAR HGB CONC 32.3 g/dl (32.0-36.5); MEAN CORPUSCULAR VOLUME 95.5 fl (80.0-96.0); MONO # 0.7 10^3/uL (0.0-0.8); MONO % 7.7 % (2.0-8.0); NEUTROPHILS % 58.5 % (36.0-66.0); PLATELET COUNT, AUTOMATED 317 10^3/uL (150-450); WHITE BLOOD COUNT 8.5 10^3/uL (4.0-10.0)
[2022-08-29 13:52] LABS: ALBUMIN 4.1 G/DL (3.2-5.2); ALKALINE PHOSPHATASE 77 U/L (46-116); ALT/SGPT 22 U/L (7.0-40); AST/SGOT 16 U/L (<34); BILIRUBIN,TOTAL 0.4 MG/DL (0.3-1.2); BLOOD UREA NITROGEN 15 MG/DL (9-23); CALCIUM LEVEL 9.2 MG/DL (8.3-10.6); CARBON DIOXIDE LEVEL 28 MMOL/L (20-31); CHLORIDE LEVEL 108 MMOL/L (98-107); CHOLESTEROL LEVEL 150 MG/DL (<200); CHOLESTEROL RISK RATIO 3.46 (<5); CREATININE FOR GFR 0.79 MG/DL (0.70-1.30); GLOMERULAR FILTRATION RATE > 60.0 (>49); GLUCOSE, FASTING 113 MG/DL (74-106); HDL CHOLESTEROL 43.3 MG/DL (>40); LDL CHOLESTEROL 67.5 MG/DL (<100); NON-HDL-C 106.7 MG/DL; SODIUM LEVEL 140 MMOL/L (136-145); THYROID STIMULATING HORMONE 0.278 uIU/ML (0.55-4.78); TOTAL PROTEIN 6.9 G/DL (5.7-8.2); TRIGLYCERIDES LEVEL 196 MG/DL (<150)
[2022-08-29 13:55] LABS: HEMOGLOBIN A1c 6.8 % (4.0-6.0)
== END ==
LOC: M LABDRWAD 11:12
PROVIDERS: ATTEND Internal Medicine
DX: E11.9 Type 2 diabetes mellitus without complications (principal); E03.9 Hypothyroidism, unspecified; E78.5 Hyperlipidemia, unspecified

== ENCOUNTER → 2022-12-13 | Outpatient (REF) | payer MEDICARE, OTHER ==
[2022-12-13 14:03] LABS: BASO % 0.2 % (0.0-1.0); EOS # 0.3 10^3/uL (0.0-0.5); HEMATOCRIT 47.3 % (42.0-52.0); HEMOGLOBIN 15.2 g/dl (13.5-17.5); LYMPH # 2.3 10^3/uL (1.5-5.0); LYMPH % 26.4 % (24.0-44.0); MEAN CORPUSCULAR HEMOGLOBIN 31.4 pg (27.0-33.0); MEAN CORPUSCULAR HGB CONC 32.1 g/dl (32.0-36.5); MEAN CORPUSCULAR VOLUME 97.7 fl (80.0-96.0); MONO # 0.7 10^3/uL (0.0-0.8); MONO % 7.5 % (2.0-8.0); NEUTROPHILS # 5.4 10^3/uL (1.5-8.5); NEUTROPHILS % 62.4 % (36.0-66.0); PLATELET COUNT, AUTOMATED 257 10^3/uL (150-450); RED BLOOD COUNT 4.84 10^6/uL (4.30-6.10); WHITE BLOOD COUNT 8.6 10^3/uL (4.0-10.0)
[2022-12-13 14:27] LABS: HEMOGLOBIN A1c 6.4 % (4.0-6.0)
[2022-12-13 14:33] LABS: ALBUMIN 3.9 G/DL (3.2-5.2); ALKALINE PHOSPHATASE 81 U/L (46-116); ALT/SGPT 19 U/L (7.0-40); AST/SGOT < 8 U/L (<34); BILIRUBIN,TOTAL 0.5 MG/DL (0.3-1.2); BLOOD UREA NITROGEN 21 MG/DL (9-23); CALCIUM LEVEL 9.5 MG/DL (8.3-10.6); CARBON DIOXIDE LEVEL 28 MMOL/L (20-31); CHLORIDE LEVEL 108 MMOL/L (98-107); CHOLESTEROL LEVEL 137 MG/DL (<200); CHOLESTEROL RISK RATIO 3.26 (<5); GLOMERULAR FILTRATION RATE > 60.0 (>49); GLUCOSE, FASTING 111 MG/DL (74-106); LDL CHOLESTEROL 61.2 MG/DL (<100); POTASSIUM SERUM 4.9 MMOL/L (3.5-5.1); SODIUM LEVEL 143 MMOL/L (136-145); TOTAL PROTEIN 6.5 G/DL (5.7-8.2); TRIGLYCERIDES LEVEL 169 MG/DL (<150)
[2022-12-13 14:35] LABS: THYROID STIMULATING HORMONE 0.613 uIU/ML (0.55-4.78)
== END ==
LOC: M LABDRWAD 12:27
PROVIDERS: ATTEND Internal Medicine
DX: E11.9 Type 2 diabetes mellitus without complications (principal); E03.9 Hypothyroidism, unspecified; E78.5 Hyperlipidemia, unspecified

== ENCOUNTER → 2023-02-19 | Outpatient (REF) | payer MEDICARE, OTHER | LOC: M SFHCADAM 11:38 | PROVIDERS: ATTEND Urology | DX: C61 Malignant neoplasm of prostate (principal) ==

== ENCOUNTER → 2023-03-13 | Outpatient (REF) | payer MEDICARE, OTHER, BC ==
[2023-03-13 14:04] LABS: BASO % 0.2 % (0.0-1.0); EOS # 0.3 10^3/uL (0.0-0.5); EOS % 3.8 % (0.0-3.0); HEMATOCRIT 47.5 % (42.0-52.0); HEMOGLOBIN 15.5 g/dl (13.5-17.5); LYMPH # 2.4 10^3/uL (1.5-5.0); LYMPH % 28.1 % (24.0-44.0); MEAN CORPUSCULAR HEMOGLOBIN 31.6 pg (27.0-33.0); MEAN CORPUSCULAR HGB CONC 32.6 g/dl (32.0-36.5); MEAN CORPUSCULAR VOLUME 96.9 fl (80.0-96.0); MONO # 0.7 10^3/uL (0.0-0.8); MONO % 8.6 % (2.0-8.0); NEUTROPHILS % 59.1 % (36.0-66.0); PLATELET COUNT, AUTOMATED 243 10^3/uL (150-450); WHITE BLOOD COUNT 8.4 10^3/uL (4.0-10.0)
[2023-03-13 14:35] LABS: ALBUMIN 3.8 G/DL (3.2-5.2); ALKALINE PHOSPHATASE 78 U/L (46-116); ALT/SGPT 20 U/L (7.0-40); AST/SGOT 12 U/L (<34); BILIRUBIN,TOTAL 0.5 MG/DL (0.3-1.2); BLOOD UREA NITROGEN 16 MG/DL (9-23); CALCIUM LEVEL 9.6 MG/DL (8.3-10.6); CARBON DIOXIDE LEVEL 29 MMOL/L (20-31); CHLORIDE LEVEL 106 MMOL/L (98-107); CHOLESTEROL LEVEL 146 MG/DL (<200); CHOLESTEROL RISK RATIO 3.25 (<5); CREATININE FOR GFR 0.86 MG/DL (0.70-1.30); GLOMERULAR FILTRATION RATE > 60.0 (>49); GLUCOSE, FASTING 118 MG/DL (74-106); HDL CHOLESTEROL 44.8 MG/DL (>40); HEMOGLOBIN A1c 6.2 % (4.0-6.0); LDL CHOLESTEROL 59.8 MG/DL (<100); NON-HDL-C 101.2 MG/DL; POTASSIUM SERUM 5.1 MMOL/L (3.5-5.1); SODIUM LEVEL 142 MMOL/L (136-145); TOTAL PROTEIN 6.4 G/DL (5.7-8.2); TRIGLYCERIDES LEVEL 207 MG/DL (<150)
== END ==
LOC: M LABDRWAD 13:10
PROVIDERS: ATTEND Internal Medicine
DX: E11.9 Type 2 diabetes mellitus without complications (principal); E78.5 Hyperlipidemia, unspecified; I10 Essential (primary) hypertension

== ENCOUNTER → 2023-06-22 | Outpatient (REF) | payer MEDICARE, OTHER ==
[2023-06-22 13:31] LABS: ALBUMIN 3.7 G/DL (3.2-5.2); ALKALINE PHOSPHATASE 90 U/L (46-116); ALT/SGPT 32 U/L (7.0-40); AST/SGOT 14 U/L (<34); BILIRUBIN,TOTAL 0.6 MG/DL (0.3-1.2); BLOOD UREA NITROGEN 19 MG/DL (9-23); CALCIUM LEVEL 9.5 MG/DL (8.3-10.6); CARBON DIOXIDE LEVEL 29 MMOL/L (20-31); CHLORIDE LEVEL 106 MMOL/L (98-107); CHOLESTEROL LEVEL 175 MG/DL (<200); CHOLESTEROL RISK RATIO 3.52 (<5); CREATININE FOR GFR 0.92 MG/DL (0.70-1.30); GLOMERULAR FILTRATION RATE > 60.0 (>49); GLUCOSE, FASTING 117 MG/DL (74-106); HDL CHOLESTEROL 49.7 MG/DL (>40); LDL CHOLESTEROL 85.9 MG/DL (<100); NON-HDL-C 125.3 MG/DL; POTASSIUM SERUM 4.7 MMOL/L (3.5-5.1); SODIUM LEVEL 138 MMOL/L (136-145); TOTAL PROTEIN 6.4 G/DL (5.7-8.2); TRIGLYCERIDES LEVEL 197 MG/DL (<150)
[2023-06-22 13:34] LABS: HEMOGLOBIN A1c 6.9 % (4.0-6.0)
== END ==
LOC: M LABDRWAD 12:42
PROVIDERS: ATTEND Internal Medicine
DX: E11.9 Type 2 diabetes mellitus without complications (principal); E78.5 Hyperlipidemia, unspecified; I10 Essential (primary) hypertension

== ENCOUNTER → 2023-08-27 | Outpatient (REF) | payer MEDICARE, BC | LOC: M LABSMT 13:03 | PROVIDERS: ATTEND Urology | DX: C61 Malignant neoplasm of prostate (principal) ==

== ENCOUNTER → 2023-10-04 | Outpatient (REF) | payer MEDICARE, OTHER ==
[~2023-10-04] MED LIST changes: -RAMI1CAP22 PO; +RAMI2.5C42 PO
[2023-10-04 16:12] LABS: THYROID STIMULATING HORMONE 1.245 uIU/ML (0.55-4.78)
[2023-10-04 16:16] LABS: ALBUMIN 3.9 G/DL (3.2-5.2); ALKALINE PHOSPHATASE 93 U/L (46-116); ALT/SGPT 22 U/L (7.0-40); AST/SGOT < 8 U/L (<34); BILIRUBIN,TOTAL 0.5 MG/DL (0.3-1.2); BLOOD UREA NITROGEN 22 MG/DL (9-23); CALCIUM LEVEL 9.2 MG/DL (8.3-10.6); CARBON DIOXIDE LEVEL 26 MMOL/L (20-31); CHLORIDE LEVEL 113 MMOL/L (98-107); CHOLESTEROL LEVEL 171 MG/DL (<200); CHOLESTEROL RISK RATIO 3.96 (<5); CREATININE FOR GFR 1.05 MG/DL (0.70-1.30); GLOMERULAR FILTRATION RATE > 60.0 (>49); GLUCOSE, FASTING 137 MG/DL (74-106); HDL CHOLESTEROL 43.1 MG/DL (>40); LDL CHOLESTEROL 89.9 MG/DL (<100); NON-HDL-C 127.9 MG/DL; POTASSIUM SERUM 4.6 MMOL/L (3.5-5.1); SODIUM LEVEL 145 MMOL/L (136-145); TOTAL PROTEIN 6.5 G/DL (5.7-8.2); TRIGLYCERIDES LEVEL 190 MG/DL (<150)
== END ==
LOC: M LABDRWAD 14:59
PROVIDERS: ATTEND Internal Medicine
DX: E11.9 Type 2 diabetes mellitus without complications (principal); E03.9 Hypothyroidism, unspecified; E78.5 Hyperlipidemia, unspecified

== ENCOUNTER → 2023-10-15 | Outpatient (REF) | payer MEDICARE, BC | LOC: M SFHCADAM 11:25 | PROVIDERS: ATTEND Urology | DX: C61 Malignant neoplasm of prostate (principal) ==

== ENCOUNTER → 2024-01-10 | Outpatient (REF) | payer MEDICARE, OTHER ==
[2024-01-10 18:57] LABS: HEMOGLOBIN A1c 6.9 % (4.0-6.0)
[2024-01-10 19:16] LABS: THYROID STIMULATING HORMONE 3.653 uIU/ML (0.55-4.78)
[2024-01-10 19:18] LABS: ALBUMIN 3.9 G/DL (3.2-5.2); ALKALINE PHOSPHATASE 94 U/L (46-116); ALT/SGPT 28 U/L (7.0-40); AST/SGOT 11 U/L (<34); BILIRUBIN,TOTAL 0.5 MG/DL (0.3-1.2); BLOOD UREA NITROGEN 16 MG/DL (9-23); CALCIUM LEVEL 9.8 MG/DL (8.3-10.6); CARBON DIOXIDE LEVEL 28 MMOL/L (20-31); CHLORIDE LEVEL 110 MMOL/L (98-107); CHOLESTEROL LEVEL 188 MG/DL (<200); CHOLESTEROL RISK RATIO 4.28 (<5); GLOMERULAR FILTRATION RATE > 60.0 (>49); GLUCOSE, FASTING 137 MG/DL (74-106); HDL CHOLESTEROL 43.9 MG/DL (>40); LDL CHOLESTEROL 100.3 MG/DL (<100); NON-HDL-C 144.1 MG/DL; SODIUM LEVEL 141 MMOL/L (136-145); TOTAL PROTEIN 6.9 G/DL (5.7-8.2); TRIGLYCERIDES LEVEL 219 MG/DL (<150)
== END ==
LOC: M LABDRWAD 17:18
PROVIDERS: ATTEND Internal Medicine
DX: E11.9 Type 2 diabetes mellitus without complications (principal); E03.9 Hypothyroidism, unspecified; E78.5 Hyperlipidemia, unspecified

== ENCOUNTER → 2024-01-16 | Outpatient (REF) | payer MEDICARE, BC | LOC: M SFHCADAM 11:51 | PROVIDERS: ATTEND Urology | DX: C61 Malignant neoplasm of prostate (principal) ==

== ENCOUNTER 2024-01-20 20:36 | Emergency (ER) | payer MEDICARE, BC ==
[~2024-01-20] VITALS: Ht 170.2 cm; Wt 101.5 kg
[2024-01-20 21:11] LABS: BASO % 0.3 % (0.0-1.0); EOS # 0.4 10^3/uL (0.0-0.5); EOS % 4.1 % (0.0-3.0); HEMATOCRIT 46.2 % (42.0-52.0); HEMOGLOBIN 15.3 g/dl (13.5-17.5); LYMPH % 23.2 % (24.0-44.0); MEAN CORPUSCULAR HGB CONC 33.1 g/dl (32.0-36.5); MEAN CORPUSCULAR VOLUME 96.7 fl (80.0-96.0); MONO # 0.7 10^3/uL (0.0-0.8); MONO % 8.6 % (2.0-8.0); NEUTROPHILS # 5.5 10^3/uL (1.5-8.5); NEUTROPHILS % 63.6 % (36.0-66.0); PLATELET COUNT, AUTOMATED 239 10^3/uL (150-450); RED BLOOD COUNT 4.78 10^6/uL (4.30-6.10); WHITE BLOOD COUNT 8.6 10^3/uL (4.0-10.0)
[2024-01-20 21:35] LABS: CK-MB VALUE MASS < 1.0 NG/ML (<3.6)
[2024-01-20 21:36] LABS: BLOOD UREA NITROGEN 23 MG/DL (9-23); CALCIUM LEVEL 9.2 MG/DL (8.3-10.6); CARBON DIOXIDE LEVEL 25 MMOL/L (20-31); CHLORIDE LEVEL 112 MMOL/L (98-107); CPK CREATINE PHOSPHOKINASE 67 U/L (46-171); CREATININE FOR GFR 0.97 MG/DL (0.70-1.30); GLOMERULAR FILTRATION RATE > 60.0 (>49); GLUCOSE, FASTING 164 MG/DL (74-106); MB/CK RELATIVE INDEX 1.49 (< OR =4); SODIUM LEVEL 140 MMOL/L (136-145)
[2024-01-20] MEDS ORDERED: ISOVUE-370 76% 100ML VIAL As Ordered ONE (22:23)
[2024-01-20 22:41] LABS: CK-MB VALUE MASS < 1.0 NG/ML (<3.6); CPK CREATINE PHOSPHOKINASE 77 U/L (46-171); MB/CK RELATIVE INDEX 1.29 (< OR =4)
[2024-01-20] MEDS: ASPIRIN 81MG CHEW TABLET PO ONE (23:40)
[2024-01-20] MEDS: LORazepam 2 MG/ML 1ML VIAL IV STA (23:47)
[2024-01-20] MEDS ORDERED: HEPARIN SOD (PORCINE) 5000UNITS/ML 1ML VIAL/SYRINGE IV PRN (23:55)
[2024-01-21] MEDS: HEPARIN SOD (PORCINE) 5000UNITS/ML 1ML VIAL/SYRINGE IV ONE (00:25)
[2024-01-21] MEDS: HEPARIN DRIP 25,000 UNITS in IV 1 EA IV SCH (00:27)
[2024-01-21 03:00] VITALS: BP 184/104; TEMP 97.6; O2SAT 97
== END 2024-01-21 03:11 | disposition short-term general hospital (02) ==
LOC: M ED 20:36
DX: I21.4 Non-ST elevation (NSTEMI) myocardial infarction (principal); I44.4 Left anterior fascicular block; E11.9 Type 2 diabetes mellitus without complications; I10 Essential (primary) hypertension; E78.5 Hyperlipidemia, unspecified; Z85.46 Personal history of malignant neoplasm of prostate; Z79.1 Long term (current) use of non-steroidal anti-inflammatories (NSAID); Z79.84 Long term (current) use of oral hypoglycemic drugs; Z79.810 Long term (current) use of selective estrogen receptor modulators (SERMs); Z79.899 Other long term (current) drug therapy
CPT/HCPCS: 36415; 71045; 71275; 80048; 82550; 82553; 84484; 85025; 85730; 93005; 93041; 94760; 96365; 96366; 96374; 96375; 99285; J2060; Q9967

== ENCOUNTER → 2024-02-18 | Outpatient (REF) | payer MEDICARE, BC ==
[2024-02-18 15:21] LABS: BASO % 0.6 % (0.0-1.0); EOS # 0.4 10^3/uL (0.0-0.5); EOS % 6.1 % (0.0-3.0); HEMATOCRIT 38.4 % (42.0-52.0); HEMOGLOBIN 12.3 g/dl (13.5-17.5); LYMPH # 1.5 10^3/uL (1.5-5.0); LYMPH % 22.4 % (24.0-44.0); MEAN CORPUSCULAR HEMOGLOBIN 31.8 pg (27.0-33.0); MEAN CORPUSCULAR VOLUME 99.2 fl (80.0-96.0); MONO # 0.5 10^3/uL (0.0-0.8); MONO % 6.9 % (2.0-8.0); NEUTROPHILS # 4.3 10^3/uL (1.5-8.5); NEUTROPHILS % 63.7 % (36.0-66.0); PLATELET COUNT, AUTOMATED 284 10^3/uL (150-450); RED BLOOD COUNT 3.87 10^6/uL (4.30-6.10); WHITE BLOOD COUNT 6.7 10^3/uL (4.0-10.0)
[2024-02-18 15:44] LABS: ALBUMIN 3.7 G/DL (3.2-5.2); ALKALINE PHOSPHATASE 124 U/L (46-116); ALT/SGPT 22 U/L (7.0-40); AST/SGOT 9 U/L (<34); BILIRUBIN,TOTAL 0.4 MG/DL (0.3-1.2); BLOOD UREA NITROGEN 15 MG/DL (9-23); CALCIUM LEVEL 9.7 MG/DL (8.3-10.6); CARBON DIOXIDE LEVEL 29 MMOL/L (20-31); CHLORIDE LEVEL 107 MMOL/L (98-107); CREATININE FOR GFR 1.06 MG/DL (0.70-1.30); GLOMERULAR FILTRATION RATE > 60.0 (>49); GLUCOSE, FASTING 173 MG/DL (74-106); POTASSIUM SERUM 4.6 MMOL/L (3.5-5.1); SODIUM LEVEL 139 MMOL/L (136-145); TOTAL PROTEIN 6.8 G/DL (5.7-8.2)
== END ==
LOC: M LABDRWAD 13:31
PROVIDERS: ATTEND Internal Medicine
DX: I25.10 Atherosclerotic heart disease of native coronary artery without angina pectoris (principal)

== ENCOUNTER → 2024-04-25 | Outpatient (REF) | payer MEDICARE, OTHER ==
[2024-04-25 13:37] LABS: HEMATOCRIT 43.8 % (42.0-52.0); MEAN CORPUSCULAR HEMOGLOBIN 30.4 pg (27.0-33.0); MEAN CORPUSCULAR VOLUME 95.2 fl (80.0-96.0); PLATELET COUNT, AUTOMATED 246 10^3/uL (150-450); WHITE BLOOD COUNT 7.3 10^3/uL (4.0-10.0)
[2024-04-25 13:56] LABS: HEMOGLOBIN A1c 6.5 % (4.0-6.0)
[2024-04-25 14:13] LABS: ALBUMIN 3.7 G/DL (3.2-5.2); ALKALINE PHOSPHATASE 106 U/L (40-129); ALT/SGPT 23 U/L (7.0-40); AST/SGOT 13 U/L (<34); BILIRUBIN,TOTAL 0.4 MG/DL (0.3-1.2); BLOOD UREA NITROGEN 20 MG/DL (9-23); CARBON DIOXIDE LEVEL 28 MMOL/L (20-31); CHLORIDE LEVEL 108 MMOL/L (98-107); CHOLESTEROL LEVEL 170 MG/DL (<200); CHOLESTEROL RISK RATIO 4.13 (<5); CREATININE FOR GFR 1.11 MG/DL (0.70-1.30); GLOMERULAR FILTRATION RATE > 60.0 (>49); GLUCOSE, FASTING 125 MG/DL (74-106); HDL CHOLESTEROL 41.1 MG/DL (>40); LDL CHOLESTEROL 77.9 MG/DL (<100); NON-HDL-C 128.9 MG/DL; SODIUM LEVEL 142 MMOL/L (136-145); TOTAL PROTEIN 6.9 G/DL (5.7-8.2); TRIGLYCERIDES LEVEL 255 MG/DL (<150)
[2024-04-25 14:14] LABS: THYROID STIMULATING HORMONE 0.568 uIU/ML (0.55-4.78)
== END ==
LOC: M LABDRWAD 12:25
PROVIDERS: ATTEND Internal Medicine
DX: E11.9 Type 2 diabetes mellitus without complications (principal); E78.5 Hyperlipidemia, unspecified; I10 Essential (primary) hypertension; E03.9 Hypothyroidism, unspecified; I25.10 Atherosclerotic heart disease of native coronary artery without angina pectoris

== ENCOUNTER → 2024-07-18 | Outpatient (REF) | payer MEDICARE, OTHER ==
[2024-07-18 19:26] LABS: BASO % 0.4 % (0.0-1.0); EOS # 0.3 10^3/uL (0.0-0.5); EOS % 4.3 % (0.0-3.0); HEMATOCRIT 45.4 % (42.0-52.0); HEMOGLOBIN 14.5 g/dl (13.5-17.5); LYMPH # 1.9 10^3/uL (1.5-5.0); LYMPH % 26.7 % (24.0-44.0); MEAN CORPUSCULAR HGB CONC 31.9 g/dl (32.0-36.5); MONO # 0.6 10^3/uL (0.0-0.8); MONO % 8.1 % (2.0-8.0); NEUTROPHILS # 4.4 10^3/uL (1.5-8.5); NEUTROPHILS % 60.1 % (36.0-66.0); PLATELET COUNT, AUTOMATED 252 10^3/uL (150-450); RED BLOOD COUNT 4.83 10^6/uL (4.30-6.10); WHITE BLOOD COUNT 7.3 10^3/uL (4.0-10.0)
[2024-07-18 19:32] LABS: ALKALINE PHOSPHATASE 96 U/L (40-129); ALT/SGPT 36 U/L (7.0-40); AST/SGOT 19 U/L (<34); BILIRUBIN,TOTAL 0.6 MG/DL (0.3-1.2); BLOOD UREA NITROGEN 19 MG/DL (9-23); CALCIUM LEVEL 9.4 MG/DL (8.3-10.6); CARBON DIOXIDE LEVEL 30 MMOL/L (20-31); CHLORIDE LEVEL 106 MMOL/L (98-107); CHOLESTEROL LEVEL 174 MG/DL (<200); CHOLESTEROL RISK RATIO 3.51 (<5); CREATININE FOR GFR 1.03 MG/DL (0.70-1.30); GLOMERULAR FILTRATION RATE > 60.0 (>49); GLUCOSE, FASTING 132 MG/DL (74-106); HDL CHOLESTEROL 49.5 MG/DL (>40); LDL CHOLESTEROL 72.7 MG/DL (<100); NON-HDL-C 124.5 MG/DL; SODIUM LEVEL 143 MMOL/L (136-145); TRIGLYCERIDES LEVEL 259 MG/DL (<150)
[2024-07-18 19:34] LABS: THYROID STIMULATING HORMONE 0.362 uIU/ML (0.55-4.78)
[2024-07-18 20:36] LABS: HEMOGLOBIN A1c 6.8 % (4.0-6.0)
== END ==
LOC: M LABDRWAD 17:32
PROVIDERS: ATTEND Internal Medicine
DX: E11.9 Type 2 diabetes mellitus without complications (principal); E78.5 Hyperlipidemia, unspecified; E03.9 Hypothyroidism, unspecified

== ENCOUNTER → 2024-07-29 | Outpatient (REF) | payer MEDICARE, BC | LOC: M LABSMT 13:46 | PROVIDERS: ATTEND Urology | DX: C61 Malignant neoplasm of prostate (principal) ==

== ENCOUNTER → 2024-09-16 | Outpatient (CLI) | payer MEDICARE, BC ==
[~2024-09-16] MED LIST changes: -FLOM0.4C39 PO; +TAMS-18 PO
== END ==
LOC: M WUC 14:50
PROVIDERS: ATTEND Internal Medicine
DX: J06.9 Acute upper respiratory infection, unspecified (principal)

== ENCOUNTER → 2025-01-20 | Outpatient (CLI) | payer MEDICARE, BC ==
[2025-01-20 19:28] LABS: BASO # 0.0 10^3/uL (0.0-0.2); BASO % 0.2 % (0.0-1.0); EOS # 0.3 10^3/uL (0.0-0.5); EOS % 3.0 % (0.0-3.0); LYMPH # 2.2 10^3/uL (1.5-5.0); LYMPH % 26.6 % (24.0-44.0); MONO # 0.7 10^3/uL (0.0-0.8); MONO % 8.2 % (2.0-8.0); NEUTROPHILS # 5.1 10^3/uL (1.5-8.5); NEUTROPHILS % 61.6 % (36.0-66.0); PLATELET COUNT, AUTOMATED 248 10^3/uL (150-450)
[2025-01-20 19:58] LABS: ESTIMATED AVERAGE GLUCOSE 151.0 MG/DL (60-110)
[2025-01-20 20:05] LABS: ALT/SGPT 31.0 U/L (7.0-40); AST/SGOT 19.0 U/L (<34); CALCIUM LEVEL 9.7 MG/DL (8.3-10.6); CARBON DIOXIDE LEVEL 29.0 MMOL/L (20-31); CHLORIDE LEVEL 108.0 MMOL/L (98-107); CHOLESTEROL LEVEL 178.0 MG/DL (<200); CHOLESTEROL RISK RATIO 3.74 (<5); CREATININE FOR GFR 1.12 MG/DL (0.70-1.30); GLOMERULAR FILTRATION RATE 70.7 (>42); LDL CHOLESTEROL 81.3 MG/DL (<100); NON-HDL-C 130.5 MG/DL; POTASSIUM SERUM 4.5 MMOL/L (3.5-5.1); SODIUM LEVEL 147.0 MMOL/L (136-145); TRIGLYCERIDES LEVEL 246.0 MG/DL (<150)
== END ==
LOC: M LABDRWAD 11:37
PROVIDERS: ATTEND Internal Medicine
DX: E03.9 Hypothyroidism, unspecified (principal); E11.9 Type 2 diabetes mellitus without complications; E78.5 Hyperlipidemia, unspecified

== ENCOUNTER → 2025-01-26 | Outpatient (CLI) | payer MEDICARE, BC | LOC: M LABDRWAD 12:00 | PROVIDERS: ATTEND Urology | DX: C61 Malignant neoplasm of prostate (principal) ==

== ENCOUNTER → 2025-04-22 | Outpatient (CLI) | payer MEDICARE, BC ==
[~2025-04-22] MED LIST changes: -FISH10005 PO; +FISH1CAP38 PO
[2025-04-22 13:54] LABS: BASO # 0.0 10^3/uL (0.0-0.2); BASO % 0.3 % (0.0-1.0); EOS # 0.3 10^3/uL (0.0-0.5); EOS % 4.1 % (0.0-3.0); LYMPH # 2.2 10^3/uL (1.5-5.0); LYMPH % 27.9 % (24.0-44.0); MONO # 0.7 10^3/uL (0.0-0.8); MONO % 9.0 % (2.0-8.0); NEUTROPHILS # 4.6 10^3/uL (1.5-8.5); NEUTROPHILS % 58.3 % (36.0-66.0); PLATELET COUNT, AUTOMATED 243 10^3/uL (150-450)
[2025-04-22 14:03] LABS: ALT/SGPT 27.0 U/L (7.0-40); AST/SGOT 20.0 U/L (<34); CALCIUM LEVEL 9.4 MG/DL (8.3-10.6); CARBON DIOXIDE LEVEL 29.0 MMOL/L (20-31); CHLORIDE LEVEL 107.0 MMOL/L (98-107); CHOLESTEROL LEVEL 191.0 MG/DL (<200); CHOLESTEROL RISK RATIO 4.06 (<5); CREATININE FOR GFR 1.12 MG/DL (0.70-1.30); GLOMERULAR FILTRATION RATE 70.7 (>42); LDL CHOLESTEROL 93.0 MG/DL (<100); NON-HDL-C 144.0 MG/DL; POTASSIUM SERUM 4.8 MMOL/L (3.5-5.1); SODIUM LEVEL 144.0 MMOL/L (136-145); TRIGLYCERIDES LEVEL 255.0 MG/DL (<150)
[2025-04-22 14:18] LABS: ESTIMATED AVERAGE GLUCOSE 157.0 MG/DL (60-110)
== END ==
LOC: M LABDRWAD 10:41
PROVIDERS: ATTEND Internal Medicine
DX: E11.9 Type 2 diabetes mellitus without complications (principal); E03.9 Hypothyroidism, unspecified; E78.5 Hyperlipidemia, unspecified

== ENCOUNTER → 2025-04-27 | Outpatient (REF) | payer MEDICARE, BC | LOC: M SFHCADAM 13:58 | PROVIDERS: ATTEND Urology | DX: C61 Malignant neoplasm of prostate (principal) ==